=== PATIENT | male | born 1970 | race Caucasian/White ===

== ENCOUNTER 2024-02-13 19:13 | Emergency (ER) | payer MEDICAID ==
[~2024-02-13] VITALS: Ht 165.1 cm; Wt 72.5 kg
[2024-02-13 19:28] VITALS: TEMP 98; O2SAT 98
[2024-02-13] MEDS ORDERED: LIDOCAINE HCL 1% 20ML VIAL INFIL ONE (19:45)
[2024-02-13] MEDS ORDERED: IBUP-2028 MT (20:43)
[2024-02-13] MEDS ORDERED: TETANUS, DIPHTHERIA, PERTUSSIS VAC/PF 0.5ML (>10YR OLD) IM ONE (20:45)
[2024-02-13 21:10] VITALS: BP 145/89; PULSE 94; RESP 17; O2SAT 98
== END 2024-02-13 21:11 | disposition home or self-care (01) ==
LOC: ER 19:13
DX: S01.511A Laceration without foreign body of lip, initial encounter (principal); E11.9 Type 2 diabetes mellitus without complications; W19.XXXA Unspecified fall, initial encounter; Y93.89 Activity, other specified; Y92.89 Other specified places as the place of occurrence of the external cause; Y99.8 Other external cause status
CPT/HCPCS: 12004; 99282